=== PATIENT | female | born 1975 | race Caucasian/White ===

== ENCOUNTER 2021-11-02 12:53 | Day surgery (SDC) | payer BC ==
[~2021-11-02] VITALS: Ht 160 cm; Wt 90.7 kg
--- NOTE | 2021-11-02 13:09 | NUR ---
ARRIVAL PT ARRIVED AMBULATORY TO ED 3. SHE FELL 30 MINUTES AGO AND HAS A POSSIBLE FOREARM FRACTURE. VITALS TAKEN AND NOTIFIED.
[2021-11-02 13:10] VITALS: BP 148/84
[2021-11-02 13:13] VITALS: BP 148/84
[2021-11-02] MEDS ORDERED: MOTRIN PO STA (13:13)
--- NOTE | 2021-11-02 13:16 | ER.PDOC ---
General Chief Complaint: Extremities Stated Complaint: FALL,LEFT WRIST INJURY Time seen by MD: 13:15 Source: patient Exam Limitations: no limitations History of Present Illness Initial Comments Left wrist pain status post fall. Patient denies hitting his head. No loss of consciousness. Occurred: just prior to arrival Where: home Severity: moderate Context: fall Location of Injury: (L) wrist Modifying Factors: pain on movement Past Medical History Medical History: high cholesterol, hypertension Surgical History: hysterectomy, tonsillectomy Family History Significant Family History: no pertinent family hx Social History Smoking: greater than 1 pack/day Alcohol Use: none Drug Use: none Review of Systems Constitutional: no symptoms reported EENTM: no symptoms reported Respiratory: no symptoms reported Cardiovascular: no symptoms reported Gastrointestinal: no symptoms reported Musculoskeletal: see HPI All Other Systems: Reviewed and Negative Physical Exam General Appearance: Alert, No Apparent Distress Hand: nml inspection, non-tender, no evidence FB Wrist: tenderness (left wrist with swelling) Neuro: sensation nml, motor nml Vascular: no vascular compromise Tendons: tendon function nml Forearm/Elbow/Arm: uninjured above wrist Skin: warm/dry Head/ENT: nml inspection, pharynx nml Neck/Back: nml inspection, non-tender Resp/CVS: no resp distress, lungs clear, heart sounds nml, reg. rate & rhythm Abdomen: non-tender, no organomegaly Results/Orders Results/Orders Orders - LISETH HARMAN MD Xr Wrist Lt (11/02/21 13:13) Ibuprofen (Motrin) (11/02/21 13:13) Vital Signs Date Time Temp Pulse Resp B/P (MAP) Pulse Ox O2 Delivery O2 Flow Rate FiO2 11/02/21 13:13 98.1 82 18 148/84 (105) 98 Room Air* 0 21 11/02/21 13:10 98.1 82 18 148/84 (105) 98 Room Air* 0 21 11/02/21 13:10 98.1 82 18 98 11/02/21 13:10 98.1 82 18 Administered Medications Medications (Trade) Dose Ordered Sig/Bridgette Route PRN Reason Start Time Stop Time Status Last Admin Dose Admin Ibuprofen (Motrin) 800 mg STAT STAT PO 11/02/21 13:13 11/02/21 13:15 DC 11/02/21 13:19 800 MG Progress Progress X rays left wrist: Fractures of the distal radius and ulna with associated soft tissue swelling about the wrist as discussed above. ER DEPART Departure Time of Disposition: 14:20 Disposition: 01 HOME / SELF CARE / HOMELESS Impression: Primary Impression: Ulnar fracture Additional Impression: Radial fracture Condition: Stable Referrals: PCP,UNKNOWN (PCP) PRIMARY CARE PROVIDER Comments Patient taken to the OR by Dr. Prince Duration or Time Spent with Pa: 20 min Problem Qualifiers Primary Impression: Ulnar fracture Encounter type: initial encounter Ulna location: distal Fracture type: closed Fracture morphology: unspecified fracture morphology Laterality: left Qualified Codes: S52.602A - Unspecified fracture of lower end of left ulna, initial encounter for closed fracture Additional Impression: Radial fracture Encounter type: initial encounter Radius location: distal Fracture type: closed Fracture morphology: other fracture Laterality: left Qualified Codes: S52.592A - Other fractures of lower end of left radius, initial e ncounter for closed fracture LISETH HARMAN MD Nov 02, 2021 13:16
[2021-11-02] MEDS ORDERED: MOTRIN ONE (13:18)
--- NOTE | 2021-11-02 14:00 | NUR ---
STATUS TREY IN ROOM
--- NOTE | 2021-11-02 14:08 | DIREP ---
PROCEDURE:XRAY WRIST MIN 3VW-LT COMPARISON:None. INDICATIONS:Pain S/P fall FINDINGS: BONES:There is a comminuted, mildly impacted, displaced and angulated fracture of the distal radial metaphysis. There is approximate 9 mm palmar displacement and at least 6 mm impaction at the fracture site. There is an accompanying tiny avulsion fracture from the distal ulnar styloid process. JOINTS:Carpal rows appear appropriately aligned. SOFT TISSUES:Soft tissue swelling about the wrist. OTHER:No additional findings. CONCLUSION: 1. Fractures of the distal radius and ulna with associated soft tissue swelling about the wrist as discussed above. Dictated by: Slim Aguilar M.D. On 11/02/2021 at 02:04 PM
[2021-11-02] MEDS ORDERED: DECADRON ONE (14:23)
[2021-11-02] MEDS ORDERED: VERSED ONE ×2 (14:23→15:22)
[2021-11-02] MEDS ORDERED: NAROPIN 0.5% 5 MG/ML VIAL ONE (14:23)
[2021-11-02] MEDS ORDERED: EXPAREL 266 MG/20 ML VIAL IJ ONE (14:25)
[2021-11-02 14:35] VITALS: BP 148/84
[2021-11-02] MEDS ORDERED: NS 100ML 100 ML IV ONE (14:55)
[2021-11-02] MEDS ORDERED: LACTATED RINGERS 1,000 ML ONE (14:56)
[2021-11-02] MEDS ORDERED: ANCEF ONE (14:56)
[2021-11-02] MEDS ORDERED: ZOFRAN ONE (15:21)
[2021-11-02] MEDS ORDERED: DIPRIVAN 100 ML IV ONE (15:21)
[2021-11-02] MEDS ORDERED: SODIUM CHLORIDE IRR BOTTLE IR ONE (16:34)
[2021-11-02 16:53] VITALS: BP 139/68
[2021-11-02 17:15] VITALS: BP 149/86
[2021-11-02 17:30] VITALS: BP 149/78
--- NOTE | 2021-11-02 19:44 | OPH ---
DATE OF SURGERY: 11/02/2021 DICTATOR NAME: Salvador Prince MD PREOPERATIVE DIAGNOSIS: Displaced left distal radius fracture. POSTOPERATIVE DIAGNOSIS: Displaced left distal radius fracture. OPERATIVE PROCEDURE: Open reduction and internal fixation, left distal radius fracture with a volar locking plate. SURGEON: Salvador Prince MD. ANESTHESIA: Axillary block. TOURNIQUET TIME: 58 minutes at 300 mmHg. DRAINS: None. BLOOD LOSS: 20 mL. DESCRIPTION OF INDICATIONS: The patient is a 46-year-old female, fell in a backyard today, injuring the left wrist. The exam and x-ray showed that she had 100% volarly displaced left distal radius fracture. Her neurovascular exam was normal. She had minimal swelling and therefore was taken to the operating room for open reduction internal fixation. DESCRIPTION OF PROCEDURE: This patient was placed in the operating table in the supine position after an axillary block was given by the Anesthesia Department. A well-padded tourniquet was placed around the left upper extremity. Left upper extremity was then sterilely prepped and draped. The arm was exsanguinated with an Esmarch. The tourniquet was inflated to 300. An incision was made on the volar radial aspect of the left wrist. The incision was taken through the skin and the subcutaneous tissues. The fascia over the flexor carpi radialis was opened and the tendon was retracted ulnarly. The thumb flexor muscle was then reflected ulnarly. The pronator quadratus was then released from the distal end of the radius. The patient had the fracture identified and using a Durham elevator, the fracture was reduced. AP and lateral C-arm views showed satisfactory reduction of the fracture in both planes. We then placed a 6-hole Synthes volar locking plate on the volar aspect of the wrist and placed a 2.7 cortical screw through the oblong hole. We then placed a 2.4 locking screws through one of the distal locking holes. AP and lateral C-arm views showed satisfactory reduction of the fracture in both planes in satisfactory hardware position. We then proceeded to add 3 more 2.4 locking screws distally and 2 cortical screws proximally. Two proximal screws were 2.4 cortical screws. The final construct had 3 cortical screws proximally and 4 locking screws distally. AP and lateral C-arm views showed satisfactory reduction of the fracture in satisfactory hardware position. The wounds were then irrigated. The soft tissue was pulled over the plate. The skin and subcutaneous were closed with 2-0 Ethilon in a horizontal mattress method. Compressive dressing was applied consisting of Adaptic, 4 x 4's, cast padding. A volar splint was applied. The patient had the tourniquet released and she was sent to recovery in stable condition. Salvador Prince MD DR: BRITNEY TID: [id number] RECEIPT: [id number]
--- NOTE | 2021-11-03 00:18 | CNH ---
DATE OF CONSULTATION: 11/02/2021 DICTATOR NAME: Salvador Prince MD ER CONSULT NOTE CHIEF COMPLAINT: Painful left wrist. HISTORY OF PRESENT ILLNESS: The patient is a 46-year-old female who fell at a friend's house today and injured her left wrist. The patient was seen in the Emergency Room by Dr. Ricardo whose exam and x-rays revealed a displaced left distal radius fracture. I was consulted for further evaluation and treatment. PHYSICAL EXAMINATION: The patient's exam today shows obvious dorsal swelling and deformity about the left wrist. She has no open wounds or fracture blisters. At this point, she only has mild swelling. The radial pulses, 2+. She has good flexion and extension of her fingers with normal sensation in all fingers. The patient has no tenderness about the left elbow or the left shoulder. DIAGNOSTIC STUDIES: The x-rays reveal a volarly displaced left distal radius fracture. ASSESSMENT: Volarly displaced left distal radius fracture. PLAN: The patient has minimal swelling. At this point, I have advocated that we proceed with open reduction and internal fixation. The risks and hazards of the procedure have been discussed with the patient. She understands the indications and wants to proceed as planned. Salvador Prince MD DR: JESIKA/LARISSA TID: [id number] RECEIPT: [id number]
--- NOTE | 2021-11-03 04:44 | DIREP ---
PROCEDURE:XRAY WRIST MIN 3VW-LT COMPARISON:[facility], , XRAY WRIST MIN 3VW-LT, 11/02/2021, 01:34 PM. INDICATIONS:POST OP LEFT ORIF WRIST. FINDINGS: BONES:Status post open reduction internal fixation of fracture involving the distal radius. Hardware intact. Satisfactory alignment. JOINTS:Normal. SOFT TISSUES:Mild soft tissue edema OTHER:No additional findings. CONCLUSION:Status post ORIF left distal radius. Hardware intact, satisfactory alignment Dictated by: Jose Hamilton MD on 11/03/2021 at 04:42 AM
== END 2021-11-02 17:38 | disposition home or self-care (01) ==
LOC: ER 12:53 → SDC 14:38
PROVIDERS: ATTEND Orthopaedic Surgery
DX: S52.572A Other intraarticular fracture of lower end of left radius, initial encounter for closed fracture (principal); I10 Essential (primary) hypertension; F41.9 Anxiety disorder, unspecified; F32.A Depression, unspecified; F17.290 Nicotine dependence, other tobacco product, uncomplicated; K21.9 Gastro-esophageal reflux disease without esophagitis; E78.00 Pure hypercholesterolemia, unspecified; Z98.890 Other specified postprocedural states; Z90.710 Acquired absence of both cervix and uterus; Z90.89 Acquired absence of other organs; W19.XXXA Unspecified fall, initial encounter; Y93.89 Activity, other specified; Y92.096 Garden or yard of other non-institutional residence as the place of occurrence of the external cause
CPT/HCPCS: 25608; 64417; 73110 ×2; 76942; 99285; A4217; C1713 ×2; J1100; J2250 ×2; J2405; J2795; J7120; 76000; C9290